=== PATIENT | male | born 1960 | race Caucasian/White ===

== ENCOUNTER 2023-09-22 09:07 | Emergency (ER) | payer OTHER, SELFPAY ==
[2023-09-22 09:09] VITALS: BP 161/103
--- NOTE | 2023-09-22 09:34 | ED.GENMED ---
Addendum entered and electronically signed by Enio Schmitz PA-C 09/24/23 08:19:
Urine culture preliminary shows greater than 100,000 colony-forming units of presumptive staph. On cefuroxime. Sensitivities pending
Original Note:
History of Present Illness
General
Chief Complaint: Male Genito-Urinary Symptoms
Source: patient
Time Seen by Provider: 09/22/23 09:15
Travel History
Have you had any contact with someone who has COVID-19?: No
Do you have any symptoms of coronavirus? Fever > 100 degrees, chills, cough, shortness of breath, sore throat, loss of taste or smell, muscle aches, or headache?: No
History of Present Illness
History of Present Illness:
63-year-old male with past medical history of CAD status post open heart surgery, hypertension, hyperlipidemia, diabetes, previous prostate cancer with prostatectomy presenting to the emergency department for evaluation of urinary
frequency/urgency/dysuria/hematuria since yesterday with symptoms continuing this morning. Patient denies any fevers, chills, rigors, nausea, vomiting, back or flank pain. He notes that he had complications following his prostatectomy and
ultimately needed to go to a urologist at [facility] who put in a urological device that would prevent patient from leaking urine and he states he has been without any issues over the last 2 years since that surgery. Patient has no other concerns at
this time. Patient follows with urology here, Dr. Cabrera and Dr. Michelle at [facility]
Past History
Past History
ED Past Medical History: CAD, HTN, Hypercholesterolemia, NIDDM and Other (BPH, prostate cancer)
ED Past Surgical History: Cardiac (CABG), Orthopedic and Other (Hernia repair)
Social History
Tobacco: Non-smoker
Alcohol: None
Drug: None
Personal:
Living: with family
Employment: Employed
Review of Systems
Review of Systems
All Other Systems: ROS reviewed and negative except as documented in HPI and ROS
Phy Exam
Physical Exam
Physical Exam:
GENERAL: Alert , in no apparent distress
EYE: clear conjunctiva b/l
HEAD: NCAT
ENT: o/p clr, mmm.
ABDOMEN: Soft, without focal tenderness, no r/g, no cvat
NEUROLOGICAL: Alert and oriented
SKIN: Warm and dry, skin intact.
MUSCULOSKELETAL: well perfused.
PSYCH: Normal and appropriate interaction.
Scores
Heart Failure Risk
Heart Failure Risk Score: Not Applicable
Heart Score for Chest Pain Patients
STEMI patient?: Not applicable
Withdrawal Assessment of Alcohol
Withdrawal Assessment Completed?: Not applicable
Course
Orders/Labs/Results
Orders:
Orders
09/22/23 09:31
Urinalysis Reflex To Culture Urgent
Date Specimen was Collected: 09/22/23
Time Specimen was Collected: 09:31
Urine Microscopic Reflex Cult Urgent
Urine Culture Urgent
CHEVY Source: U
Specimen Description:
Date Specimen was Collected: 09/22/23
Time Specimen was Collected: 09:31
09/22/23 09:37
Complete Blood Count/With Diff Urgent
Comprehensive Metabolic Panel Urgent
Abnormal Lab Results
09/22/23 09/22/23
09:31 09:37
MCV 97.9 H fL
(80.0-94.0)
MCH 34.0 H pg
(27.0-31.0)
Absolute Neuts (auto) 6.8 H 10^3/uL
(1.4-6.5)
Absolute Monos (auto) 1.0 H 10^3/uL
(0.1-0.6)
Lymphocytes % 20.0 L %
(20.5-51.1)
Monocytes % 10.0 H %
(1.7-9.3)
Creatinine 0.6 L mg/dL
(0.7-1.3)
Glucose 119 H mg/dl
(70-99)
Urine Ketones 3+ A
(Negative)
Ur Occult Blood Reflex 4+ A
(Negative)
Leukocyte Esterase Rfl 2+ A
(Negative)
Urine RBC >100 A /HPF
(0-2)
Urine WBC (Reflex) >100 A /HPF
(0-5)
Urine Bacteria (Reflex) Few A
(Negative)
Urine Glucose 3+ A
(Negative)
Urine Albumin (Reflex) 2+ A
(Neg - Trace)
09/22/23 09:37
09/22/23 09:37
Vital Signs
Initial and Last Documented VS:
Initial Vital Signs
Temp Pulse Resp BP Pulse Ox
99.1 F 68 20 161/103 99
09/22/23 09:09 09/22/23 09:09 09/22/23 09:09 09/22/23 09:09 09/22/23 09:09
Last Documented Vital Signs
Temp Pulse Resp BP Pulse Ox
99.1 F 68 20 161/103 99
09/22/23 09:09 09/22/23 09:09 09/22/23 09:09 09/22/23 09:09 09/22/23 09:09
MDM/Problems Addressed
Differential Diagnosis Includes:
Cystitis, Pyelonephritis, renal/ureteral colic
MDM/Problems Addressed:
63-year-old male presenting to the emergency department for evaluation of urinary symptoms including frequency, urgency, dysuria and hematuria last night. Patient states he did not have hematuria while urinating here. He denies any fevers, chills,
rigors. Has a director of medical review implanted 2+ years ago at [facility]. Doubt complication from this device but more likely cystitis. Patient without fevers or vomiting or flank pain that would lead me to believe renal/ureteral colic or pyelonephritis.
Anticipate likely outpatient management with oral antibiotics and close outpatient follow-up.
Chronic conditions affecting care: Other (Prostate cancer status post prostatectomy)
*Pulse Oximetry
Patient hypoxic: no
*Critical Care Note
Total Time (30-74mins, 75-104mins- exclusive of procedures): Not Applicable
Data Reviewed
Review of Other/Old Records Reveals: Labs and Records
Patient Management
Escalation/DeEscalation of care consider admission/obs:
Patient's urinalysis suggestive of urinary tract infection. There is greater than 100 WBCs on his differential. He does not have any previous urine cultures noted. Will treat with cefuroxime and Pyridium for urinary symptoms. Follow-up with
primary care provider and urology. Aware of return precautions but otherwise stable for discharge home
ED Attending Note
-
Portions of this chart may have been created with voice recognition software.� Occasional wrong word or��sound alike� substitutions may have occurred due to the inherent limitations of voice recognition software.
Discharge Plan
Departure
Patient Disposition: Home (Routine Discharge)
Date of Disposition: 09/22/23
Time of Disposition: 11:07
Patient with high blood pressure during this ER visit?: Yes
Discharge Problem:
Urinary tract infection
Instructions: Urinary Tract Infection, Adult ED
Prescriptions:
New
cefuroxime axetil 500 mg tablet
500 mg PO BID 10 Days Qty: 20 0RF
phenazopyridine [Pyridium] 200 mg tablet
200 mg PO TID PRN (Reason: Pain) Qty: 8 0RF
No Action
metformin 500 MG tablet
500 mg PO BID
aspirin 81 MG tablet,delayed release (DR/EC)
81 mg PO DAILY
metoprolol tartrate 50 MG tablet
50 mg PO QPM
lisinopril 40 MG tablet
40 mg PO QPM
glipizide 5 MG tablet
5 mg PO DAILY
rosuvastatin [Crestor] 40 MG tablet
40 mg PO QPM
cephalexin 500 MG tablet
500 mg PO QID 7 Days Qty: 28 0RF
Referrals:
Baltazar Cabrera MD [Active] - (Please call for appointment)
Trip Sweet MD [Family Provider] -
Interventions
Interventions:
*Risk Screen - Suicide Last Done: 09/22/23 09:09
*General Assessment Last Done: 09/22/23 09:09
*Neglect/Abuse Screening Last Done: 09/22/23 09:09
*Nursing Disposition Last Done: 09/22/23 11:28
ED-Male Genitourinary Assessment Last Done: 09/22/23 09:38
Discharge Date and Time
Discharge Date/Time: 09/22/23 11:28
Print Language: SLOVAK
[2023-09-22 09:38] LABS: Urine Albumin 2+ (Neg - Trace); Urine Bilirubin Negative (Negative); Urine Character Very Cloudy (Clear); Urine Color Yellow; Urine Glucose 3+ (Negative); Urine Ketone 3+ (Negative); Urine Leukocyte 2+ (Negative); Urine Nitrite Negative (Negative); Urine Occult Blood 4+ (Negative); Urine Urobilinogen Negative (Neg - 1+)
[2023-09-22 10:02] LABS: % Basophils 0.2 % (0-2); % Eosinophils 0.6 % (0-6); % Immature Granulocytes 0.3 % (0-0.5); % Neutrophils 68.9 % (42.2-75.2); Absolute Eosinophils 0.1 10^3/uL (0-0.7); Absolute Neutrophils 6.8 10^3/uL (1.4-6.5); Hematocrit 46.3 % (39.0-52.0); Hemoglobin 16.1 g/dL (13.0-18.0); Mean Corp Hgb Conc. 34.8 g/dL (33.0-37.0); Mean Corpuscular Volume 97.9 fL (80.0-94.0); Mean Platelet Volume 9.7 fL (7.4-10.4); Nucleated Red Blood Cells % 0 % (-); Platelet Count 201 10^3/uL (130-400); Red Blood Cell Count 4.73 10^6/uL (4.70-6.10); Red Cell Dist. Width 12.5 % (11.5-14.5); White Blood Cell Count 9.9 10^3/uL (4.8-10.8)
[2023-09-22 10:03] LABS: ALT (SGPT) 34 U/L (0-50); AST (SGOT) 27 U/L (17-59); Alkaline Phosphatase 76 U/L (38-126); Blood Urea Nitrogen 17 mg/dl (9-20); Calcium 9.7 mg/dl (8.4-10.2); Carbon Dioxide 24 mmol/L (22-30); Chloride 103 mmol/L (98-107); Glucose 119 mg/dl (70-99); Potassium 4.6 mmol/L (3.5-5.1); Sodium 139 mmol/L (135-145); Total Bilirubin 0.8 mg/dl (0.2-1.3); Total Protein 7.9 g/dl (6.3-8.2); eGFR > 60.00
[2023-09-22 11:26] LABS: Urine Bacteria Few (Negative); Urine Red Blood Cell >100 /HPF (0-2); Urine White Cell >100 /HPF (0-5)
== END 2023-09-22 11:28 | disposition home or self-care (01) ==
LOC: EMR 09:07
PROVIDERS: Physician Assistant Medical; EMERGENCY PHYSICIAN Emergency Medicine; FAMILY PHYSICIAN Family Medicine
DX: N39.0 Urinary tract infection, site not specified (principal); I10 Essential (primary) hypertension; I25.10 Atherosclerotic heart disease of native coronary artery without angina pectoris; E11.9 Type 2 diabetes mellitus without complications; E78.00 Pure hypercholesterolemia, unspecified; N40.1 Benign prostatic hyperplasia with lower urinary tract symptoms; Z85.46 Personal history of malignant neoplasm of prostate; Z95.1 Presence of aortocoronary bypass graft; Z90.79 Acquired absence of other genital organ(s); Z79.82 Long term (current) use of aspirin; Z79.84 Long term (current) use of oral hypoglycemic drugs
CPT/HCPCS: 99283; 80053; 81003; 81015; 85025; 87086; 87147; 87186